=== PATIENT | male | born 1990 | race Caucasian/White ===

== ENCOUNTER 2016-08-08 08:37 | Day surgery (SDC) | payer OTHER ==
[~2016-08-08] VITALS: Ht 180.3 cm; Wt 104.5 kg
[2016-08-08 08:41] VITALS: BP 153/102; RESP 12; O2SAT 96
[2016-08-08] MEDS ORDERED: Glucagon 1 mg/mL Inj IV ONE (09:10)
--- NOTE | 2016-08-08 09:10 | ED.REPORT ---
HPI-General Illness Date of Service Aug 08, 2016 ED Provider: Maurice Houston MD The patient is a 26 year old male who presents to the emergency department complaining of a foreign body sensation in his throat. The patient states when he was eating roast beef last night it felt like something was stuck. He is unable to swallow liquids and starting early this morning he has been unable to swallow his secretions. He has had similar symptoms in the past but has always been able to pass it without intervention. He denies any previous medical problems. He has no known drug allergies. Nursing Notes Stated Complaint: GI ISSUE Chief Complaint: ENT & Mouth Nursing Notes Reviewed: Yes ([employer], meds not reconciled) Allergies: Coded Allergies: No Known Allergies (Unverified , 08/08/16) No Active Prescriptions or Reported Meds General Time Seen by MD: 09:09 Chief Complaint Other (FB sensation in throat) Hx Obtained From: Patient Arrived By: Walk-in Sudden in Onset?: Yes Onset Occurred: 13 - 16 hours ago Symptom Duration: Since onset Quality: Painful Severity: Current: Moderate Severity: Maximum: Mild Recent Healthcare: No recent doctor visit, No recent hospitalization Similar Sx Previous: Yes (usually able to pass it) Past Medical History Past Medical History None Family History Noncontributory Smoking History Former Smoker Social History Alcohol Use: "Social" Drug Use: Denies drug use Other Social History: Local resident Ambulatory Status Independent Review of Systems +FB sensation in throat Full Review of Systems GI: Reports: Nausea, Vomiting Complete sys rev & neg: except as marked. Physical Exam Vital Signs Vital Signs Date Time Temp Pulse Resp B/P Pulse Ox O2 Delivery O2 Flow Rate FiO2 08/08/16 08:41 36.7 74 12 153/102 96 Initial VS: Reviewed, Vital signs normal (mild HTN) Head / Eyes: Atraumatic, Normocephalic, PERRL ENT: Mucous membranes moist, Conjunctiva normal, No scleral icterus Neck: Supple, Non-tender, Full range of motion Respiratory: Breath sounds normal, Clear to auscultation, No respiratory distress Cardiovascular: Regular rate & rhythm, Heart sounds normal, Intact distal pulses Abdomen / GI: Soft, Non-tender, No guarding, No rebound, No distention Lymphatic: No lymphadenopathy Extremities: Vascular intact, Neuro intact, No swelling, No tenderness Skin: Warm, Dry, No cyanosis Neurologic: Alert, Oriented, Nonfocal Psychiatric: Mood/affect normal, Behavior normal, Normal thought content General/Constitutional: Awake, Alert, No acute distress, Well appearing, Well nourished, Cooperative Re-Eval/Medical Decision Med Decision/Clinical Course This is a 26-year-old male who presents with a complaint that he has steak stuck in his throat. He reports an intermittent history of things catching as he swallows, but he reports he is generally been able to work and down her vomit them up. He has never undergone previous endoscopy, denies prior history of significant reflex, denies NSAID use. 9 PM last night he felt that he got something stuck in his mcvyop-zevk-hog been unable to manage secretions ever since. He woke up every hour and kept spitting up up saliva, is not been able to get solids or liquids down, and continues to spit up saliva during the interview. He has no additional complaints. On exam, again the patient is spitting up his saliva, but has no evidence of airway compromise, and otherwise has a normal exam. GI was consult at after patient evaluation, recommended re-notification if he failed a trial of glucagon and cola IV was placed, the patient received a trial of glucagon, and a trial of soda - but made no improvement and continues to be spitting up his saliva. GI was notified, and the plan is to take the patient to endoscopy for further management. Source of Hx: Old records Time of Eval: 09:53 Re-Evaluation/Progress Note: Rechecked the patient. Administered cola. Will recheck. Time of Eval: 10:22 Re-Evaluation/Progress Note: Rechecked the patient. He is still unable to keep anything down. Will page GI. Time of Eval: 13:24 Re-Evaluation/Progress Note: The patient is still waiting for GI. He is still unable to swallow his secretions. Consultation #1: Referral / Consult Name: Solo Pepper MD Call Returned at: 09:45 Note: Spoke with the on-call health navigator. He would like a call back after the glucagon and cola. Consultation #2: Referral / Consult Name: Solo Pepper MD Requested Call at: 10:22 Call Returned at: 10:24 Licensed Massage Therapist: Will see patient, Agrees with eval, Agrees with plan Note: He will take the patient to endoscopy. Differential Diagnosis: Negative: Abdominal pain, Acute coronary syndrome, Allergies, Laceration, Malingering, Neutropenia Counseled Regarding: Diagnosis, Lab results Discharge & Departure Primary Impression: Esophageal foreign body Encounter type: initial encounter Qualified Code: T18.108A - Unspecified foreign body in esophagus causing other injury, initial encounter Disposition: ADMITTED TO HOSPITAL (to endoscopy) Discharge Condition All VS Reviewed: Yes Condition: Stable Scribe Attestation Portions of this note were transcribed by Queenie Newman. I, Dr. Girffith personally performed the history, physical exam and medical decision-making; I reviewed and confirmed the accuracy of the information in the transcribed note. Signed by: Dariusz Nance, 08/08/2016 at 1330. Elian Griffith MD Aug 08, 2016 09:10 Queenie Newman Aug 08, 2016 09:14
[2016-08-08] MEDS ORDERED: fentaNYL-PF 50 mCg/mL 2 mL Inj ONE (10:53)
[2016-08-08] MEDS ORDERED: Propofol 10,000 mCg/mL 20 mL Inj ONE (10:53)
--- NOTE | 2016-08-08 11:17 | PCM.HPANE ---
Patient Data Surgeon Admitting Provider: Attending Provider:Solo Pepper MD [facility] Other Provider:Ed Abdullahi Anesthesia Reason for Visit Esophageal Forein Body Ht/WT & BMI Height (Feet): 5 Height (Inches): 11 Weight (Kilograms): 104.55 Body Mass Index Allergies Coded Allergies: No Known Allergies (Unverified , 08/08/16) Diabetes History Hx Diabetes?: No Medications No Active Prescriptions or Reported Meds History History of ENT Problems?: No Hx of Heart Problems?: No Cardiovascular History: Denies:: Congestive Heart Failure Hypertension Hx of Respiratory Problem?: No Respiratory History: Denies:: Tuberculosis Hx Musculoskeletal Problems?: No Hx Surgeries?: Yes (Tonsils) Hx Diabetes: No Hx Alcohol Use: NoHx Substance Use: No (No recent) Smoking Status: Former Smoker Have You Smoked inLast 12 mo: No Stop/Bang NEVAEH Risk Assessment: Low Risk, <3 Yes Risk Assessment Category Category 1A: Patient has history of documented sleep apnea, and HAS NOT received any narcotic, sedative or anesthesia administration during this stay. Category 1B: Patient has history of documented sleep apnea, and HAS received any narcotic , sedative or anesthesia administration during this stay Category 2: Patient has SUSPECTED Obstructive Sleep Apnea, and HAS received any narcotic , sedative or anesthesia administration during this stay. Category 3: Patient has SUSPECTED Obstructive Sleep Apnea and HAS NOT received narcotic, sedative or anesthesia administration during this stay. Category 4: Outpatient in Procedural Areas with known sleep apnea or who screen positive for High Risk via the STOP/BANG questionnaire. Exam Exam Vital Signs Vital Signs Date Time Temp Pulse Resp B/P Pulse Ox O2 Delivery O2 Flow Rate FiO2 08/08/16 08:41 36.7 74 12 153/102 96 General Appearance: Alert, Oriented X3, Cooperative, No Acute Distress HEENT/AIRWAY: MP 2 Lungs: Clear to Auscultation, Normal Air Movement Heart: Exam Unremarkable, Regular Rate/Rhythm, No Murmurs/Rubs/Gallops Meds/Labs/Diagnostics Admission Meds Current Medications Glucagon (Glucagen Inj) 1 mg ONCE ONCE IV Last administered on 08/08/16t 09:42 ; Start 08/08/16 at 09:10; Stop 08/08/16 at 09:11; Status DC Plan Impression Patient chart reviewed, patient interviewed and anesthestic plan with risks, benefits, and alternatives discussed, and informed consent obtained. ASA Physical Status: ASA2 Mod Systemic Disease Anesthetic Plan: MAC Bene/Risks/Altern/Consents: Yes HP Complete Prior to Induction: Yes Elian Segura MD Aug 08, 2016 11:17
[2016-08-08] MEDS ORDERED: 0.9% Sodium Chloride 500 ML IV ONE (13:25)
--- NOTE | 2016-08-08 13:40 | CONS ---
[address] [address] CONSULTATION REPORT PATIENT: SAM OLMOS : 1990 MR#: [id number] ADMIT: 08/08/2016 JOB ID: [id number] DATE OF SERVICE: 08/08/2016 GASTROENTEROLOGY CONSULTATION: REASON FOR CONSULTATION: Food impaction. HISTORY OF PRESENT ILLNESS: A 26-year-old, pleasant male with no past medical history presents here for food stuck in throat. The patient states he had roast beef around 9 p.m. last night, was unable to swallow it down. The patient states he has had similar episodes in the past without any interventions. Patient never had an EGD or colonoscopy. Denies family history of colon cancer, inflammatory bowel disease, or celiac disease. The patient denies rectal bleeding, hematemesis, abdominal pain, change in bowel habits, or unintentional weight loss. PAST MEDICAL HISTORY: None. PAST SURGERIES: None. SOCIAL HISTORY: Social alcohol and no IV drug use. No smoking. He is a former smoker. MEDICATIONS AT HOME: None. ALLERGIES: No known drug allergies. FAMILY HISTORY: Negative for colon cancer. REVIEW OF SYSTEMS: The patient denies headache, blurred vision. Positive for nausea and vomiting. No chest pain, shortness of breath, skin rash, joint pain. PHYSICAL EXAMINATION: Vital signs upon presentation: Temperature is 36.7, pulse 74, respiratory rate 12, blood pressure 153/102, saturating 96% on room air. General: In no acute distress. Eyes: Anicteric. Throat: Supple. Lungs: Clear to auscultation bilaterally. Cardiovascular: Regular rhythm and rate. Abdomen: Soft, nondistended, nontender. Normoactive bowel sounds. Extremities: No cyanosis, clubbing, or edema. ASSESSMENT AND PLAN: A 26-year-old, healthy male who presents here with food impaction. RECOMMENDATIONS: 1. Please keep n.p.o. 2. EGD to be performed today with anesthesia for removal of food foreign body.
[2016-08-08 14:31] VITALS: BP 142/87; PULSE 78; RESP 16; O2SAT 100
[2016-08-08] MEDS: Lactated Ringer's 1,000 ML IV ONE ×2 (16:56→17:00)
[2016-08-08] MEDS ORDERED: Lactated Ringer's 1,000 ML IV SCH (16:57)
[2016-08-08] MEDS ORDERED: Ondansetron 2 mg/mL 2 mL Inj IVPUSH PRN (17:00)
[2016-08-08] MEDS ORDERED: MetoCLOpramide 5 mg/mL 2 mL Inj IVPUSH PRN (17:00)
[2016-08-08 17:10] VITALS: BP 137/71; PULSE 83; RESP 16; O2SAT 94
--- NOTE | 2016-08-08 17:12 | PCM.ANEP1 ---
Post Anesthesia Phase 1 PACU Phase 1 Assessment Vital Signs Vital Signs Date Time Temp Pulse Resp B/P Pulse Ox O2 Delivery O2 Flow Rate FiO2 08/08/16 14:31 78 16 142/87 100 Room Air Anesthetic Administered: GA TUTTLE's with Equal Strength: Yes Pain: No Nausea or Vomiting: No Oxygen Delivery: Nasal Cannula Lungs: Clear to Auscultation, Normal Air Movement Dermatome Level: Full Sensation Elian Segura MD Aug 08, 2016 17:12
--- NOTE | 2016-08-08 17:12 | PCM.ANEP2 ---
Post Anesthesia Evaluation ASA/CMS Post Anesthesia VS in Patient's Normal Range?: Yes Resp Stable; Airway Patent?: Yes CV Function & Hydration Stable: Yes Mental Status Recovered?: Yes Pain control Satisfactory?: Yes N/V Control Satisfactory?: Yes Elian Segura MD Aug 08, 2016 17:12
[2016-08-08 17:20] VITALS: BP 131/65; PULSE 90; RESP 16; O2SAT 98
[2016-08-08 17:25] VITALS: BP 152/84; PULSE 95; RESP 16; O2SAT 97
--- NOTE | 2016-08-08 20:04 | ENDO ---
[address] [address] ENDOSCOPY PROCEDURE PATIENT: SAM OLMOS : 1990 MR#: [id number] ADMIT: 08/08/2016 JOB ID: [id number] OPERATION: Esophagogastroduodenoscopy with biopsy. PREOPERATIVE DIAGNOSIS(ES): Food impaction. POSTOPERATIVE DIAGNOSIS(ES): 1. Roast beef was seen in the distal esophagus which was pushed through into the esophagus. 2. There was a moderate distal esophagitis. 3. Klarissa-Mccarthy tear seen on retroflexion. ANESTHESIA: Monitored anesthesia care. COMPLICATIONS: None. BLOOD LOSS: Minimal. DESCRIPTION OF PROCEDURE: After risks and benefits were explained to the patient, informed consent was obtained. After anesthesia administered, upper endoscope was inserted into the mouth, intubated the esophagus, stomach, second portion of the duodenum and mucosa carefully examined. After the procedure, the scope withdrawn and procedure terminated. FINDINGS: Upon entering the esophagus, there was a large amount of roast beef that was seen in the distal esophagus. The roast beef was then pushed through the endoscope into the stomach without any difficulty. There was also moderate distal erosive esophagitis that was seen. No ulcers were seen. Z-line located 40 cm from incisors. Upon entry into the stomach, there were no masses, ulcers, or lesions that were seen. Retroflexion did show a Klarissa-Mccarthy tear that was nonbleeding. Duodenal bulb, first and second portion were normal. Biopsies taken at the mid and distal esophagus to rule out eosinophilic esophagitis. IMPRESSIONS: 1. Klarissa-Mccarthy tear seen on retroflexion. 2. Moderate erosive esophagitis. 3. Food impaction of roast beef seen in the distal esophagus which was pushed through with ease into the stomach. RECOMMENDATIONS: 1. Will encourage the patient to chew his food thoroughly. 2. Protonix 40 mg by mouth twice a day. 3. Await biopsy results. 4. Okay to discharge home today.
--- NOTE | 2016-08-10 13:26 | PATH ---
SURGICAL PATHOLOGY Attending Physician:Solo Pepper MD CASE STATUS: Signed Out PATIENT NAME: SAM OLMOS PID: [id number] : 1990 DATE COLLECTED:08/08/2016 00:00 SPECIMEN: 1: Esophagus, Biopsy 2: Esophagus, Biopsy CLINICAL HISTORY: 1.MID ESOPHAGEAL BXS 2. DISTAL ESOPHAGEAL BXS FINAL DIAGNOSIS: 1.MID ESOPHAGEAL BIOPSY: SQUAMOUS MUCOSA WITH REACTIVE EPITHELIAL CHANGES AND PROMINENT INTRAEPITHELIAL EOSINOPHILS NUMBERING MANY 20 PER HIGH-POWERED FIELD, ALL CONSISTENT WITH EOSINOPHILIC ESOPHAGITIS. 2.DISTAL ESOPHAGUS BIOPSIES: FRAGMENTS OF SQUAMOUS MUCOSA WITH REACTIVE EPITHELIAL CHANGES AND INTRAEPITHELIAL EOSINOPHILS NUMBERING UP TO 15 PER HIGH-POWERED FIELD, CONSISTENT WITH EOSINOPHILIC ESOPHAGITIS. NO GASTRIC EPITHELIUM IDENTIFIED. ICD10 CODE K20.0 GROSS DESCRIPTION: The specimen is received in two formalin filled containers labeled with the patient's name. 1). The specimen is sublabeled "mid esophageal" and consists of a 0.3 x 0.2 x 0.2 CM portion of tissue which is entirely submitted in cassette 1A. 2). The specimen is sublabeled "cyst distal esophageal" and consists of 2 portions of tissue which aggregate to 0.3 x 0.3 x 0.3 CM. The specimen is entirely submitted in cassette 2A. 08/09/2016 [facility] MICRO DESCRIPTION: See diagnosis. ICD-9 CODES: CPT CODES: 1: 06766 2: 63933 Electronically Signed Out Gagan Arana MD [facility] [address], [place] [address] Technical component performed at [facility], [facility] [address], [place], [address]
== END 2016-08-08 23:59 | disposition home or self-care (01) ==
LOC: SED 08:37 → END 10:52
PROVIDERS: ATTEND Internal Medicine Gastroenterology
DX: T18.128A Food in esophagus causing other injury, initial encounter (principal); K22.6 Gastro-esophageal laceration-hemorrhage syndrome; K20.0 Eosinophilic esophagitis; Z87.891 Personal history of nicotine dependence
CPT/HCPCS: 43239; 43247; 88305; 96374; 99285; J1610; J2250; J3010; J7040; J7120